=== PATIENT | male | born 1950 | race Caucasian/White ===

== ENCOUNTER 2021-07-24 10:53 | Day surgery (SDC) | payer MEDICARE, OTHER ==
--- NOTE | 2021-07-22 12:26 | PCM.PREANE ---
<DwayneMae mabry - Last Filed: 07/23/21 13:00> Preanesthetic Assessment - Procedure Proposed Procedure: Right Knee Video Arthroscopy with partial medial meniscectomy - Anesthesia/Transfusion/Family Hx Anesthesia History: No Prior Anesthesia Family History of Anesthesia Reaction: No Transfusion History: No Prior Transfusion(s) Intubation History: Unknown - Review of Systems Pulmonary: No Symptoms (DEBBY with CPAP;) Cardiovascular: No Symptoms (Elevated cholesterol, HTN) Other: Reports: Diabetes (am blood sugar=), Thyroid Problems (Hypothyroid) - Physical Assessment NPO Status Date: 07/22/21 Vital Signs: HR: Sat: Temp: B/P: Resp: Height: 1.91 m ASA Class: 3 Mental Status: Alert & Oriented x3 - Lab Values: All labs reviewed and noted and within acceptable ranges to proceed with scheduled procedure. - Imaging/EKG Impressions: EKG: CXR: negative Echocardiogram: 07/22/2021: EF: 55-60%, mild concentric left ventricular hypertrophy - Allergies Allergies/Adverse Reactions: Allergies Allergy/AdvReac Type Severity Reaction Status Date / Time No Known Allergies Allergy Verified 07/23/21 18:53 - Anesthesia Plan Pre-Op Medication Ordered: Beta Marisela Beta Mariseal: Other (Bystolic) Med Last Dose Date: 07/23/21 - Acknowledgements Anesthesia Type Planned: General Anesthesia Pt an Appropriate Candidate for the Planned Anesthesia: Yes Alternatives and Risks of Anesthesia Discussed w Pt/Guardian: Yes Pt/Guardian Understands and Agrees with Anesthesia Plan: Yes PreAnesthesia Questionnaire - HOME MEDS Home Medications: Home Meds Diclofenac Sodium [Voltaren 1% Gel] 1 dose TOP QID PRN 07/22/21 [History] Fluconazole [Diflucan] 150 mg PO Q48H 07/22/21 [History] Insulin Degludec [Tresiba] 75 units SQ BID 07/22/21 [History] Insulin Lispro [HumaLOG] 75 units SQ BID 07/22/21 [History] Levothyroxine [Synthroid] 50 mcg PO DAILY 07/22/21 [History] Nebivolol HCl [Bystolic] 10 mg PO DAILY 07/22/21 [History] Nystatin [Nystatin Crm] 1 dose TOP ASDIRECTED PRN 07/22/21 [History] Olmesartan [Benicar] 10 mg PO DAILY 07/22/21 [History] Rosuvastatin [Crestor] 20 mg PO DAILY 07/22/21 [History] Semaglutide [Ozempic] 1 mg SQ MO 07/22/21 [History] allopurinoL [Zyloprim] 100 mg PO DAILY 07/22/21 [History] Aspirin [Aspirin EC] 325 mg PO BID #60 tab 07/23/21 [Rx] Hydrocodone/Acetaminophen [HYDROcodone-Acetaminophen 5-325 MG] 1 - 2 each PO Q6H PRN #15 tablet 07/23/21 [Rx] <RogelioSantoa - Last Filed: 07/24/21 13:03> Preanesthetic Assessment - Anesthesia/Transfusion/Family Hx Anesthesia History: No Prior Anesthesia Family History of Anesthesia Reaction: No Transfusion History: No Prior Transfusion(s) Intubation History: Unknown - Review of Systems General: No Symptoms Pulmonary: Shortness of Breath (SOB with exertion) Neurological: No Symptoms Other: Reports: Diabetes (am blood jfzes=531 @ 0900) - Physical Assessment NPO Status Date: 07/23/21 NPO Status Time: 20:00 ASA Class: 3 Mental Status: Alert & Oriented x3 Airway Class: Mallampati = 1 Dentition: Reports: Normal Dentition, Implants Thyro-Mental Finger Breadths: 3 Mouth Opening Finger Breadths: 3 ROM/Head Extension: Full Lungs: Clear to Auscultation, Normal Respiratory Effort Cardiovascular: Regular Rate, Regular Rhythm - Anesthesia Plan Pre-Op Medication Ordered: Beta Mariseal Beta Marisela: Other Med Last Dose Date: 07/24/21 Med Last Dose Time: 09:00 - Acknowledgements Anesthesia Type Planned: General Anesthesia Pt an Appropriate Candidate for the Planned Anesthesia: Yes Alternatives and Risks of Anesthesia Discussed w Pt/Guardian: Yes Pt/Guardian Understands and Agrees with Anesthesia Plan: Yes PreAnesthesia Questionnaire HEENT History: Reports: Impaired Vision Cardiovascular History: Reports: High Cholesterol, Hypertension, SOB on Exertion Respiratory History: Reports: SOB Musculoskeletal History: Reports: None Psychiatric History: Reports: None Endocrine/Metabolic History: Reports: Diabetes, Type II - SUBSTANCE USE Tobacco Use Status *Q: Former Tobacco User - CURRENT (IN HOUSE) MEDS Current Meds: Current Medications Epinephrine HCl (Epinephrine 1 Mg/Ml 30 Ml Mdv) 3 mg IRR ONETIME BEAN Stop: 07/24/21 17:00 Discontinued Medications Cefazolin Sodium (Cefazolin 1 Gm Vial) Confirm Administered Dose 3 gm .ROUTE .STK-MED ONE Stop: 07/24/21 12:48 Epinephrine HCl (Epinephrine 1 Mg/Ml 30 Ml Mdv) 3 mg IRR ONETIME BEAN Stop: 07/23/21 23:00 Fentanyl (Fentanyl 250 Mcg/5 Ml Sdv) Confirm Administered Dose 250 mcg .ROUTE .STK-MED ONE Stop: 07/24/21 12:49 Lactated Ringer's (Ringers, Lactated) 1,000 mls @ 125 mls/hr IV ASDIRECTED BEAN Stop: 07/23/21 23:00 Lidocaine HCl (Xylocaine-Mpf 1%) Confirm Administered Dose 4 mls @ as directed .ROUTE .STK-MED ONE Stop: 07/24/21 12:48 Lactated Ringer's (Ringers, Lactated) Confirm Administered Dose 1,000 mls @ as directed .ROUTE .STK-MED ONE Stop: 07/24/21 12:48 Lidocaine/Sodium Bicarbonate (Lidocaine 1%/Sod Bicarbonate In Ns 8.4% 1 Ml Syringe) 0.25 ml IDERM ONETIME PRN PRN Reason: Prior to IV Start Stop: 07/23/21 18:00 Midazolam HCl (Midazolam 1 Mg/Ml 2 Ml Sdv) Confirm Administered Dose 2 mg .ROUTE .STK-MED ONE Stop: 07/24/21 12:49 Ondansetron HCl (Ondansetron 4 Mg/2 Ml Sdv) Confirm Administered Dose 4 mg .ROUTE .STK-MED ONE Stop: 07/24/21 12:48 Propofol (Propofol 200 Mg/20 Ml Sdv) Confirm Administered Dose 400 mg .ROUTE .STK-MED ONE Stop: 07/24/21 12:48 Rocuronium [place] (Rocuronium 50 Mg/5 Ml Vial) Confirm Administered Dose 50 mg .ROUTE .STK-MED ONE Stop: 07/24/21 12:48 Sodium Chloride (Sodium Chloride 0.9% 10 Ml Syringe) 10 ml FLUSH ASDIRECTED PRN PRN Reason: Keep Vein Open Stop: 07/23/21 18:00
[~2021-07-24 10:53] MED LIST: EPINEPHrine 1 MG/ML 30 ML MDV IRR SCH; Lactated Ringers 1,000 ML IV SCH; Lidocaine 1%/Sod Bicarbonate in NS 8.4% 1 ML Syringe IDERM PRN; Sodium Chloride 0.9% 10 ML Syringe FLUSH PRN
[2021-07-24] MEDS ORDERED: Lactated Ringers 1,000 ML ONE (12:47)
[2021-07-24] MEDS ORDERED: Ondansetron 4 MG/2 ML SDV ONE (12:47)
[2021-07-24] MEDS ORDERED: Propofol 200 MG/20 ML SDV ONE (12:47)
[2021-07-24] MEDS ORDERED: ceFAZolin 1 GM Vial ONE (12:47)
[2021-07-24] MEDS ORDERED: Lidocaine 1% 4 ML ONE (12:47)
[2021-07-24] MEDS ORDERED: Rocuronium 50 MG/5 ML Vial ONE (12:47)
[2021-07-24] MEDS ORDERED: Midazolam 1 MG/ML 2 ML SDV ONE (12:48)
[2021-07-24] MEDS ORDERED: fentaNYL 250 MCG/5 ML SDV ONE (12:48)
[2021-07-24] MEDS ORDERED: Bupivacaine 0.25% 10 ML SDV ONE (13:26)
[2021-07-24] MEDS ORDERED: Ondansetron 4 MG/2 ML SDV IVPUSH PRN (14:17)
[2021-07-24] MEDS ORDERED: HYDROmorphone 0.5 MG/0.5 ML Syringe IVPUSH PRN (14:17)
[2021-07-24] MEDS ORDERED: fentaNYL 100 MCG/2 ML SDV IVPUSH PRN (14:17)
[2021-07-24] MEDS ORDERED: Ketorolac 30 MG/ML SDV ONE (14:53)
--- NOTE | 2021-07-24 15:01 | PCM.POSTAN ---
POST ANESTHESIA ASSESSMENT - MENTAL STATUS Mental Status: Alert, Oriented - VITAL SIGNS Vital Signs: Last Vital Signs Temp 36.3 C 07/24/21 11:30 Pulse 74 07/24/21 11:30 Resp 20 07/24/21 11:30 BP 165/79 H 07/24/21 11:30 Pulse Ox 96 07/24/21 11:30 - RESPIRATORY Respiratory Status: Respiratory Rate WNL, Airway Patent, O2 Saturation Stable, Supplemental Oxygen - CARDIOVASCULAR CV Status: Pulse Rate WNL, Blood Pressure Stable - GASTROINTESTINAL GI Status: No Symptoms - PAIN Pain Score: 0 - POST OP HYDRATION Hydration Status: Adequate & Stable
--- NOTE | 2021-07-24 15:08 | PCM48HPAN ---
Post Anesthesia Note - EVALUATION WITHIN 48HRS OF ANESTHETIC Vital Signs in Normal Range: Yes Patient Participated in Evaluation: Yes Respiratory Function Stable: Yes Airway Patent: Yes Cardiovascular Function Stable: Yes Hydration Status Stable: Yes Pain Control Satisfactory: Yes Nausea and Vomiting Control Satisfactory: Yes Mental Status Recovered: Yes Vital Signs: Last Vital Signs Temp 36.3 C 07/24/21 14:54 Pulse 74 07/24/21 11:30 Resp 14 07/24/21 14:54 BP 119/70 07/24/21 14:54 Pulse Ox 95 07/24/21 14:54
[2021-07-24] MEDS ORDERED: Acetaminophen/HYDROcodone 325-10 MG Tab PO PRN (16:04)
--- NOTE | 2021-08-03 16:50 | PCM.OPNOTE ---
- General Post-Op/Procedure Note Date of Surgery/Procedure: 07/24/21 Operative Procedure(s): right knee video arthroscopy with partial medial meniscectomy and chondroplasty medial femoral condyle Pre Op Diagnosis: right knee medial meniscus tear and chondromalacia Post-Op Diagnosis: Same Anesthesia Technique: General LMA Primary Surgeon: Lee Jane Anesthesia Provider: Mariya Mercado [employer] Supervisor: Tanya Pate in mLs: 5 Complications: None Condition: Good
--- NOTE | 2021-08-04 08:37 | OR ---
DATE OF OPERATION: 07/24/2021 SURGEON: Lee Jane MD OPERATION PERFORMED: Right knee video arthroscopy, partial medial meniscectomy and chondroplasty, medial femoral condyle. PREOPERATIVE DIAGNOSIS: Right knee medial meniscus tear and chondromalacia. POSTOPERATIVE DIAGNOSIS: Right knee medial meniscus tear and chondromalacia. ANESTHESIA: General LMA with local. ANESTHESIA PROVIDER: Mariya Mercado [employer] OPERATOR: Tanya Pate PA-C ESTIMATED BLOOD LOSS: Less than 5 mL. COMPLICATIONS: None. CONDITION: Stable. DESCRIPTION OF PROCEDURE: The patient was identified in the preoperative holding area. Proper site was marked and identified by the surgeon. The patient was taken back to the operative theater where after adequate anesthesia, the patient had his left lower extremity placed in a well-leg corrigan. Right lower extremity had a nonsterile tourniquet applied and was then placed in a C-clamp corrigan. Foot of the bed was then lowered. Right lower extremity was then sterilely prepped and draped in the usual sterile fashion. OR time-out was performed. The patient received 2 g IV Ancef. At this time, the right lower extremity was exsanguinated. Tourniquet was insufflated to 250 mmHg. Standard anterolateral portal incision was made. The scope trocar was introduced. The patellofemoral joint did show grade 2/3 chondromalacia with no loose cartilage or loose fragments. Attention was turned to the medial compartment. With the use of spinal needle, anteromedial portal was created. The patient was noted to have grade 3 chondromalacia of the medial femoral condyle as well as grade 2 chondromalacia of the medial tibial plateau. There was a loose cartilaginous fragment. Chondroplasty of the medial femoral condyle was then undertaken. At this time, the patient was noted to have a tear of the posterior third of the horn of the medial meniscus. A partial medial meniscectomy was done back to a stable rim. At this time, ACL was intact in the notch. Lateral compartment showed grade 2 chondromalacial changes. Excess saline was drained from the knee. A 3-0 nylon simple suture was used for closure of the skin. The patient had a sterile soft dressing applied and sent to the PACU in stable condition. MMODAL /[id number]
== END 2021-07-24 16:45 | disposition home or self-care (01) ==
LOC: JD.SDS 10:53
PROVIDERS: ATTEND Orthopaedic Surgery
DX: S83.241A Other tear of medial meniscus, current injury, right knee, initial encounter (principal); M94.261 Chondromalacia, right knee; E78.5 Hyperlipidemia, unspecified; I10 Essential (primary) hypertension; E03.9 Hypothyroidism, unspecified; E66.3 Overweight; G47.30 Sleep apnea, unspecified; E11.9 Type 2 diabetes mellitus without complications; B35.1 Tinea unguium; R80.9 Proteinuria, unspecified; G47.33 Obstructive sleep apnea (adult) (pediatric); Z79.899 Other long term (current) drug therapy; Z79.890 Hormone replacement therapy; Z79.4 Long term (current) use of insulin; Z87.891 Personal history of nicotine dependence
CPT/HCPCS: 01402; J0690; J1885; J2250; J2405; J2704; J2710; J3010; J3490; J7120

== ENCOUNTER 2023-03-22 06:10 | Day surgery (SDC) | payer MEDICARE, BC ==
[~2023-03-22 06:10] MED LIST changes: +Acetaminophen 325 MG Tab PO SCH; -EPINEPHrine 1 MG/ML 30 ML MDV IRR SCH; -Lidocaine 1%/Sod Bicarbonate in NS 8.4% 1 ML Syringe IDERM PRN; +Morphine 8 MG, EPINEPHrine 0.3 MG, Cefuroxime 750 MG, Ketorolac 30 MG, Sodium Chloride ... PRN; +Pregabalin 25 MG Cap PO SCH; +Sodium Chloride 0.9% 10 ML Syringe FLUSH SCH; +oxyCODONE ER 10 MG TAB.ER PO SCH
[2023-03-22] MEDS ORDERED: Dexmedetomidine 200 MCG/2 ML SDV ONE (06:13)
[2023-03-22] MEDS ORDERED: Ropivacaine 0.5% 5 MG/ML 30 ML SDV ONE (06:13)
[2023-03-22] MEDS ORDERED: Propofol 200 MG/20 ML SDV ONE (06:18)
[2023-03-22] MEDS ORDERED: Lidocaine 1% 4 ML ONE (06:19)
[2023-03-22] MEDS ORDERED: Midazolam 1 MG/ML 2 ML SDV ONE (06:19)
[2023-03-22] MEDS ORDERED: fentaNYL 100 MCG/2 ML SDV ONE (06:19)
[2023-03-22] MEDS ORDERED: Dexamethasone 4 MG/ML 5 ML MDV ONE (06:28)
[2023-03-22] MEDS ORDERED: Vancomycin 1 GM SDV ONE (06:47)
[2023-03-22] MEDS ORDERED: Tranexamic Acid 1,000 MG/10 ML Vial ONE (06:47)
[2023-03-22] MEDS ORDERED: ceFAZolin 2 GM Vial ONE (06:51)
[2023-03-22] MEDS ORDERED: Sodium Chloride 0.9% 1,000 ML IV SCH (07:00)
[2023-03-22] MEDS ORDERED: EPINEPHrine 1 MG/ML SDV ONE (09:45)
[2023-03-22] MEDS ORDERED: oxyCODONE 5 MG Tab PO SCH (12:43)
== END 2023-03-22 14:00 | disposition home or self-care (01) ==
LOC: JD.SDS 06:10
PROVIDERS: ATTEND Orthopaedic Surgery
DX: M17.11 Unilateral primary osteoarthritis, right knee (principal); I13.0 Hypertensive heart and chronic kidney disease with heart failure and stage 1 through stage 4 chronic kidney disease, or unspecified chronic kidney disease; E11.22 Type 2 diabetes mellitus with diabetic chronic kidney disease; N18.30 Chronic kidney disease, stage 3 unspecified; I50.9 Heart failure, unspecified; E78.5 Hyperlipidemia, unspecified; D69.6 Thrombocytopenia, unspecified; M1A.9XX0 Chronic gout, unspecified, without tophus (tophi); E03.9 Hypothyroidism, unspecified; K76.0 Fatty (change of) liver, not elsewhere classified; G47.33 Obstructive sleep apnea (adult) (pediatric); E66.9 Obesity, unspecified; Z79.899 Other long term (current) drug therapy; Z79.4 Long term (current) use of insulin; Z79.890 Hormone replacement therapy; Z79.01 Long term (current) use of anticoagulants; Z68.36 Body mass index [BMI] 36.0-36.9, adult
CPT/HCPCS: 0055T; 27447; 64447; 73560; 97110; 97116; 97161; A9270; C1713; C1776; J0171; J0690; J0697; J1100; J1885; J2250; J2270; J2704; J2795; J3010; J3370; J7030; 01402; 99100; J3490

== ENCOUNTER 2023-12-26 11:08 | Emergency (ER) | payer MEDICARE, BC ==
[2023-12-26 12:17] LABS: BASOPHILS ABSOLUTE AUTO 0.1 K/mm3 (0.0-0.2); BASOPHILS PERCENT AUTO 0.8 % (0.0-1.0); EOSINOPHILS ABSOLUTE AUTO 0.1 K/mm3 (0.0-0.4); EOSINOPHILS PERCENT AUTO 1.2 % (0.0-6.0); HEMATOCRIT 43.4 % (42.0-52.0); HEMOGLOBIN 14.7 gm/dl (14.0-18.0); IMMATURE GRAN ABSOLUTE AUTO 0.07 K/mm3 (0.00-0.05); IMMATURE GRAN PERCENT AUTO 0.9 % (0.0-0.4); LYMPHOCYTES ABSOLUTE AUTO 0.9 K/mm3 (1.0-4.8); LYMPHOCYTES PERCENT AUTO 12.4 % (24.0-44.0); MEAN CORPUSCULAR HEMOGLOBIN 30.1 pg (28.0-32.0); MEAN CORPUSCULAR HGB CONC 33.9 g/dl (32.0-36.0); MEAN CORPUSCULAR VOLUME 88.9 fl (83.0-99.0); MEAN PLATELET VOLUME 10.2 fl (9.4-12.4); MONOCYTES ABSOLUTE AUTO 0.7 K/mm3 (0.0-0.8); MONOCYTES PERCENT AUTO 9.5 % (0.0-8.0); NEUTROPHILS ABSOLUTE AUTO 5.7 K/mm3 (1.8-7.7); NEUTROPHILS PERCENT AUTO 75.2 % (41.0-71.0); PLATELET COUNT,PLT 144 K/mm3 (150-400); RED BLOOD CELL COUNT 4.88 M/mm3 (4.52-5.90)
[2023-12-26 12:25] LABS: ALBUMIN 3.3 g/dl (3.4-5.0); ANION GAP 12.8 (5-15); BILIRUBIN TOTAL 0.6 mg/dL (0.2-1.0); BUN/CREATININE RATIO 17.6 (14-18); CALCIUM 9.8 mg/dL (8.5-10.1); CREATININE 1.7 mg/dL (0.7-1.3); EST CRCL DRUG DOSING (CG) 46.94 mL/min; MAGNESIUM 2.3 mg/dL (1.8-2.4); POTASSIUM,K 3.8 mEq/L (3.5-5.1); PROTEIN TOTAL,TP 6.7 g/dl (6.4-8.2)
[2023-12-26 12:28] LABS: LACTIC ACID 2.6 mmol/L (0.4-2.0)
[2023-12-26] MEDS: 50% Dextrose in Water 50 ML Syringe IVPUSH STA (14:07)
[2023-12-26] MEDS: Sodium Chloride 0.9% 1,000 ML IV ONE (14:08)
[2023-12-26] MEDS ORDERED: levETIRAcetam 500 MG/5 ML SDV ONE (14:20)
[2023-12-26 14:29] LABS: APPEARANCE,URINE CLEAR (Clear); BILIRUBIN,URINE NEGATIVE (Negative); COLOR,URINE YELLOW (Yellow); GLUCOSE,URINE 2+ (Negative); KETONES,URINE NEGATIVE (Negative); LEUKOCYTE ESTERASE,URINE NEGATIVE (Negative); NITRITE,URINE NEGATIVE (Negative); OCCULT BLOOD,URINE NEGATIVE (Negative); PH,URINE 5.5 (5.0-8.0); PROTEIN,URINE TRACE (Negative); UROBILINOGEN,URINE 0.2 (0.2-1.0)
[2023-12-26] MEDS: Aspirin 81 MG Tab.Chew PO ONE (14:33)
[2023-12-26 14:37] LABS: BASE EXCESS ARTERIAL -1.6 (-2-2.0); BICARBONATE,ARTERIAL 22.3 meq/L (22.0-26.0); O2 SATURATION ARTERIAL 94.1 % (96.0-97.0); PCO2 ARTERIAL 36.7 mmHg (35.0-45.0)
[2023-12-26] MEDS: levETIRAcetam 500 MG/5 ML SDV IVPUSH ONE (14:45)
[2023-12-26 14:46] LABS: BACTERIA,URINE FEW /hpf (FEW); RBC,URINE 0-5 /hpf (0-5); SQUAMOUS EPITHELIAL CELLS,UR 0-5 /hpf (0-5); WBC,URINE 0-5 /hpf (0-5)
[2023-12-26 14:47] LABS: MUCUS,URINE FEW /hpf (FEW)
[2023-12-26 14:54] LABS: AMPHETAMINES SCREEN, URINE NEGATIVE (CUTOFF=500); BARBITURATE SCREEN,URINE NEGATIVE (CUTOFF=200); BENZODIAZEPINES SCREEN,URINE NEGATIVE (CUTOFF=150); BUPRENORPHINE SCREEN,URINE NEGATIVE (CUTOFF=10); METHADONE SCREEN, URINE NEGATIVE (CUT0FF=200); METHAMPHETAMINES SCREEN, URINE NEGATIVE (CUTOFF=500); OXYCODONE SCREEN,URINE NEGATIVE (CUT0FF=100); THC SCREEN,URINE 20 NG/ML NEGATIVE (CUTOFF=50)
[2023-12-26 15:11] LABS: INR 1.03
[2023-12-26 16:48] LABS: ALBUMIN 3.4 g/dl (3.4-5.0); ANION GAP 11.8 (5-15); BILIRUBIN TOTAL 0.7 mg/dL (0.2-1.0); BUN/CREATININE RATIO 15.9 (14-18); CALCIUM 9.4 mg/dL (8.5-10.1); CREATININE 1.7 mg/dL (0.7-1.3); EST CRCL DRUG DOSING (CG) 46.94 mL/min; POTASSIUM,K 3.8 mEq/L (3.5-5.1); PROTEIN TOTAL,TP 6.7 g/dl (6.4-8.2)
[2023-12-26] MEDS: Heparin Sodium 5,000 Units/ML Vial IVPUSH ONE (17:26)
[2023-12-26] MEDS: Dextrose 10% in Water 1,000 ML IV SCH (17:26)
== END 2023-12-26 18:22 ==
LOC: JD.ED 11:08
DX: G40.909 Epilepsy, unspecified, not intractable, without status epilepticus (principal); E11.649 Type 2 diabetes mellitus with hypoglycemia without coma; R07.1 Chest pain on breathing; R79.1 Abnormal coagulation profile; F05 Delirium due to known physiological condition; I10 Essential (primary) hypertension; E78.00 Pure hypercholesterolemia, unspecified; Z79.4 Long term (current) use of insulin; Z79.899 Other long term (current) drug therapy; Z79.02 Long term (current) use of antithrombotics/antiplatelets
CPT/HCPCS: 36415; 36600; 70450; 70450-26; 71045; 71045-26; 71111; 71111-26; 71120; 71120-26; 80053; 80306; 80307; 81001; 82550; 82803; 82947; 83605; 83735; 84100; 84484; 85025; 85379; 85610; 85730; 93005; 96361; 96374; 96375; 99285-25; A9270-GY; J1644; J1953; J3490; J7030

== ENCOUNTER 2024-06-29 10:32 | Day surgery (SDC) | payer MEDICARE, BC ==
[2024-06-29] MEDS: Lactated Ringers 1,000 ML IV SCH (10:30)
[2024-06-29] MEDS ORDERED: Propofol 200 MG/20 ML SDV ONE ×2 (11:28)
[2024-06-29] MEDS ORDERED: Sodium Chloride 0.9% 10 ML Syringe FLUSH PRN (11:30)
[2024-06-29] MEDS: Furosemide 20 MG/2 ML VIAL IVPUSH ONE (13:24)
[2024-06-29] MEDS ORDERED: Sodium Chloride 0.9% 10 ML Syringe FLUSH SCH (21:00)
== END 2024-06-29 13:34 | disposition home or self-care (01) ==
LOC: JD.SDS 10:32
PROVIDERS: ATTEND Surgery
DX: D12.0 Benign neoplasm of cecum (principal); K29.80 Duodenitis without bleeding; C78.7 Secondary malignant neoplasm of liver and intrahepatic bile duct; C80.1 Malignant (primary) neoplasm, unspecified; K57.30 Diverticulosis of large intestine without perforation or abscess without bleeding; I13.0 Hypertensive heart and chronic kidney disease with heart failure and stage 1 through stage 4 chronic kidney disease, or unspecified chronic kidney disease; E11.22 Type 2 diabetes mellitus with diabetic chronic kidney disease; I50.9 Heart failure, unspecified; N18.30 Chronic kidney disease, stage 3 unspecified; F17.210 Nicotine dependence, cigarettes, uncomplicated; E03.9 Hypothyroidism, unspecified; E66.9 Obesity, unspecified; Z86.16 Personal history of COVID-19; Z79.899 Other long term (current) drug therapy; Z79.2 Long term (current) use of antibiotics; Z79.890 Hormone replacement therapy; Z68.32 Body mass index [BMI] 32.0-32.9, adult; Z79.4 Long term (current) use of insulin
CPT/HCPCS: 36415; 43239; 45380; 82378; G0103; J1940; J2704; J7120; 00813; 99100

== ENCOUNTER 2025-05-21 10:50 | Emergency (ER) | payer MEDICARE, BC ==
[2025-05-21] MEDS ORDERED: Sodium Chloride 0.9% 10 ML Syringe FLUSH PRN (11:21)
[2025-05-21 12:20] LABS: BASOPHILS ABSOLUTE AUTO 0.1 K/mm3 (0.0-0.2); BASOPHILS PERCENT AUTO 0.7 % (0.0-1.0); EOSINOPHILS ABSOLUTE AUTO 0.2 K/mm3 (0.0-0.4); EOSINOPHILS PERCENT AUTO 1.2 % (0.0-6.0); IMMATURE GRAN ABSOLUTE AUTO 0.16 K/mm3 (0.00-0.05); IMMATURE GRAN PERCENT AUTO 0.9 % (0.0-0.4); LYMPHOCYTES ABSOLUTE AUTO 0.9 K/mm3 (1.0-4.8); LYMPHOCYTES PERCENT AUTO 4.8 % (24.0-44.0); MEAN PLATELET VOLUME 11.2 fl (9.4-12.4); MONOCYTES ABSOLUTE AUTO 0.9 K/mm3 (0.0-0.8); MONOCYTES PERCENT AUTO 5.0 % (0.0-8.0); NEUTROPHILS ABSOLUTE AUTO 16.4 K/mm3 (1.8-7.7); NEUTROPHILS PERCENT AUTO 87.4 % (41.0-71.0); NRBC ABSOLUTE 0.00 (0.00-0.02); NRBC PERCENT 0.0 % (0.0-0.2); PLATELET COUNT,PLT 151 K/mm3 (150-400); RED BLOOD CELL COUNT 3.68 M/mm3 (4.52-5.90); WHITE BLOOD CELL COUNT,WBC 18.77 K/mm3 (3.9-11.3)
[2025-05-21 12:51] LABS: A/G RATIO 0.5 (1-2); ALANINE AMINOTRANSFERASE,ALT 15.0 U/L (16-63); ASPARTATE AMNIOTRANSFERASE,AST 35.0 U/L (15-37); BILIRUBIN TOTAL 0.6 mg/dL (0.2-1.0); BLOOD UREA NITROGEN,BUN 8.0 mg/dL (7-18); CARBON DIOXIDE,CO2 26.0 mEq/L (21-32); CHLORIDE,CL 100.0 mEq/L (98-107); CREATININE 0.9 mg/dL (0.7-1.3); EST CRCL DRUG DOSING (CG) 87.37 mL/min; ESTIMATED GFR 90.0 mL/min (>60); GLUCOSE RANDOM 214.0 mg/dL (70-99); POTASSIUM,K 3.0 mEq/L (3.5-5.1); PROTEIN TOTAL,TP 5.4 g/dl (6.4-8.2); SODIUM,NA 137.0 mEq/L (136-145); TROPONIN I HIGH SENSITIVITY 10.0 pg/mL (<=76)
[2025-05-21 12:54] LABS: TSH 4.55 uIU/mL (0.358-3.74)
[2025-05-21 13:15] LABS: T4 FREE 1.37 ng/dL (0.76-1.46)
[2025-05-21] MEDS: cefTRIAXone 1 GM in Water For Injection, Sterile 10 ML IVPUSH ONE (13:55)
[2025-05-21] MEDS: Potassium Chloride 20 MEQ Tab.ER PO ONE (14:02)
== END 2025-05-21 14:59 | disposition home or self-care (01) ==
LOC: JD.ED 10:50
DX: R55 Syncope and collapse (principal); E86.0 Dehydration; I10 Essential (primary) hypertension; E78.00 Pure hypercholesterolemia, unspecified; E11.9 Type 2 diabetes mellitus without complications; Z86.16 Personal history of COVID-19; Z79.4 Long term (current) use of insulin; Z79.890 Hormone replacement therapy; Z79.899 Other long term (current) drug therapy
CPT/HCPCS: 36415; 71045; 80053; 83735; 83880; 84439; 84443; 84484; 85025; 93005; 96361; 96365; 96375; 99285; A9270; J0696; J1642; J3475; J7030; 93010; 99284